=== PATIENT | male | born 1985 | race African-American/Black ===

== ENCOUNTER 2020-08-15 16:18 | Emergency (ER) | payer BC, SELFPAY ==
--- NOTE | ~2020-08-15 | XR_ITS ---
XR chest 1V portable DATE: 08/15/2020 17:15 INDICATION: Midsternal chest pain, cough, congestion. History of asthma. TECHNIQUE: Portable AP chest on 08/15/2020 at 1712 hours COMPARISON: 11/10/2012 AP and lateral chest FINDINGS: Normal heart size. There are patchy bilateral perihilar infiltrates. No pleural effusion or pneumothorax. IMPRESSION: Patchy bilateral perihilar pulmonary infiltrates. Consider bilateral perihilar pneumonia Reviewed, dictated and finalized at location A. IMPRESSION: Patchy bilateral perihilar pulmonary infiltrates. Consider bilatera l perihilar pneumonia
[2020-08-15 16:27] VITALS: BP 110/77; PULSE 83; RESP 18; TEMP 36.8; O2SAT 99
--- NOTE | 2020-08-15 18:38 | ED.GENADULT ---
HPI - General Adult General Chief complaint: Upper Respiratory Infection Stated complaint: COUGH,COLD S/SX Time Seen by Provider: 08/15/20 16:37 Source: patient, family and RN notes reviewed Mode of arrival: ambulatory Limitations: no limitations History of Present Illness HPI narrative: Patient is a 35-year-old male who presents to emergency department for evaluation of upper respiratory symptoms that began with congestion rhinorrhea fatigue body aches and now experiencing cough patient denied any vomiting diarrhea patient does have history of tobacco abuse and marijuana use patient is an asthmatic notes he has been out of his medication patient on arrival has not taken anything for his symptoms lives at home with his patient denies sick contacts and has not been vaccinated for Covid Related Data Home Medications Medication Instructions Recorded Confirmed albuterol 08/15/20 Allergies Allergy/AdvReac Type Severity Reaction Status Date / Time No Known Allergies Allergy Unknown Verified 08/15/20 16:30 Review of Systems Review of Systems: All systems reviewed & are unremarkable except as noted in HPI and below PMFSH Past Medical History Medical History (Updated 08/15/20 @ 18:44 by Russel Galicia PA-C) Asthma Social History Social History (Updated 08/15/20 @ 18:42 by Russel Galicia PA-C) Smoking status: Current every day smoker Alcohol intake: current Exam Narrative: Exam Narrative: GENERAL: Ill-appearing, well-nourished, and in no acute distress. HEAD: Normocephalic, atraumatic. EYES: PERRLA and EOMI. ENT: Nares clear, no rhinorrhea or epistaxis. Mucous membranes moist. Oropharynx without tonsillar hypertrophy exudate or other lesions. NECK: Supple. No adenopathy or masses. No carotid bruits or JVD CHEST: Diminished on auscultation. No respiratory distress. No wheezes rales or rhonchi HEART: Regular rate and rhythm. No murmur heard. EXTREMITIES: Normal range of motion. No edema. SKIN: Warm, dry, no rash. NEURO: No focal deficits. Alert and oriented x3. PSYCH: Normal mood and affect. Course Course Emergency Course: Patient presented with upper respiratory symptoms found to have pneumonia will be tested for Covid given primary care follow-up is agreeing to follow with primary care as instructed he is aware that primary care will be necessary to obtain his results patient will be placed on antibiotics given an inhaler was also given an MDI he has a pulse oximeter at home and will be discharged with outpatient follow-up and agrees with this plan has been provided with reasons to return Vital Signs Vital signs: Vital Signs Temperature 98.3 F 08/15/20 16:27 Pulse Rate 83 08/15/20 16:27 Respiratory Rate 18 08/15/20 16:27 Blood Pressure 110/77 08/15/20 16:27 Pulse Oximetry 99 08/15/20 16:27 Temperature 98.3 F 08/15/20 16:27 Pulse Rate 83 08/15/20 16:27 Respiratory Rate 18 08/15/20 16:27 Blood Pressure 110/77 08/15/20 16:27 Pulse Oximetry 99 08/15/20 16:27 Medical Decision Making MDM Narrative Medical decision making narrative: Patient presented with upper respiratory symptoms for 1 day found to have pneumonia no hypoxemia will be discharged home where he lives with his family will follow with primary care hemodynamically stable ABCs and vital signs intact and stable Vital Signs Vital Signs: Vital Signs Temperature 98.3 F 08/15/20 16:27 Pulse Rate 83 08/15/20 16:27 Respiratory Rate 18 08/15/20 16:27 Blood Pressure 110/77 08/15/20 16:27 Pulse Oximetry 99 08/15/20 16:27 Temperature 98.3 F 08/15/20 16:27 Pulse Rate 83 08/15/20 16:27 Respiratory Rate 18 08/15/20 16:27 Blood Pressure 110/77 08/15/20 16:27 Pulse Oximetry 99 08/15/20 16:27 Lab Data Labs: Lab Results 08/15/20 Range/Units 18:00 SARS-CoV-2 RNA (RT-PCR) Pending Discharge Plan Discharge Clinical Impression: Upper respiratory inf
[2020-08-15 18:55] VITALS: BP 137/85; PULSE 86; RESP 18; O2SAT 98
[2020-08-16 17:24] LABS: SARS-CoV-2 RNA PCR Negative
== END 2020-08-15 18:56 | disposition home or self-care (01) ==
PROVIDERS: Emergency Medicine Emergency Medical Services; Emergency Provider Emergency Medicine
DX: J18.9 Pneumonia, unspecified organism (principal); J06.9 Acute upper respiratory infection, unspecified; Z20.822 Contact with and (suspected) exposure to COVID-19; J45.909 Unspecified asthma, uncomplicated; F17.200 Nicotine dependence, unspecified, uncomplicated
CPT/HCPCS: 71045; 99283; C9803; U0003; U0005

== ENCOUNTER 2020-11-11 09:20 | Emergency (ER) | payer BC, SELFPAY ==
--- NOTE | ~2020-11-11 | XR_ITS ---
EXAMINATION: XR foot LT 2V DATE: 11/11/2020 09:38 INDICATION: Left foot pain and swelling. TECHNIQUE: 2 views of left foot were obtained. COMPARISON: None. FINDINGS: Bone alignment is normal. No fracture. There is mild osteoarthritis of first metatarsophala ngeal joint and some of the midfoot joints. There is an enthesophyte at posterior aspect of calcaneal tuberosity. IMPRESSION: 1. Mild polyarticular osteoarthritis. Reviewed, dictated and finalized at location A.
[2020-11-11 09:23] VITALS: BP 126/87; PULSE 85; RESP 14; TEMP 36.7; O2SAT 98
--- NOTE | 2020-11-11 10:51 | PC.NURSE ---
pt. asking to eat chips told nothing to eat or drink
--- NOTE | 2020-11-11 12:43 | PC.NURSE ---
Pt up to desk multiple times asking for discharge papers and about medications. 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 PA placed orders for lab work before discharge. Pt instructed that PA states she is unable to discharge him without results and pt would have to leave AMA if he needs to leave before. Pt updated and not happy. ERPA back at bedside to speak with pt.
--- NOTE | 2020-11-11 12:47 | ED.LOWEXIN ---
HPI - Extremity Injury (Lower) General Chief Complaint: Extremity Injury, Lower Stated Complaint: left big toe pain Time Seen by Provider: 11/11/20 11:55 Source: patient Mode of arrival: ambulatory Limitations: no limitations History of Present Illness HPI Narrative: This is a 35-year-old male that presents to the emergency department for left great toe pain noted since yesterday. Reports swelling and pain to the area. Denies any certain injury or trauma. Denies fever or erythema. Related Data Home Medications Medication Instructions Recorded Confirmed albuterol 08/15/20 Allergies Allergy/AdvReac Type Severity Reaction Status Date / Time No Known Allergies Allergy Unknown Verified 11/11/20 11:19 Review of Systems Review of Systems: CONSTITUTIONAL: Denies fever SKIN: Denies rash MUSCULOSKELETAL: Reports joint pain, and myalgia. NEUROLOGIC: Denies numbness All systems reviewed & are unremarkable except as noted in HPI and below PMFSH Past Medical History Medical History (Updated 11/11/20 @ 12:47 by Lexii Escobar PA-C) Asthma Social History Social History (Updated 08/15/20 @ 18:42 by Russel Galicia PA-C) Smoking status: Current every day smoker Alcohol intake: current Exam Narrative: GENERAL: Well-appearing, obese, and in no acute distress. HEAD: Normocephalic, atraumatic. EYES: EOMI. EXTREMITIES: Normal range of motion. Mild edema about the left first MTP joint. No erythema or warmth. Normal DP pulses. Normal sensation SKIN: Warm, dry, no rash. NEURO: No focal deficits. Alert and oriented x3. PSYCH: Normal mood and affect Course Vital Signs Vital signs: Vital Signs Temperature 98.1 F 11/11/20 09:23 Pulse Rate 85 11/11/20 09:23 Respiratory Rate 14 11/11/20 09:23 Blood Pressure 126/87 11/11/20 09:23 Pulse Oximetry 98 11/11/20 09:23 Temperature 98.1 F 11/11/20 09:23 Pulse Rate 85 11/11/20 09:23 Respiratory Rate 14 11/11/20 09:23 Blood Pressure 126/87 11/11/20 09:23 Pulse Oximetry 98 11/11/20 09:23 MDM - Extremity Injury (Lower) MDM Narrative Medical decision making narrative: Patient presents to the emergency department for left first MTP joint pain since yesterday. No known injury or trauma. Patient is neurovascularly intact. Mild edema about the joint, no erythema. Left foot x-ray shows mild polyarticular osteoarthritis. Symptoms and exam seem consistent with a possible gout flare. I spoke with patient about this and how I would like to get further laboratory evaluation prior to treating him as our last labs of his show some renal insufficiency. Patient refused and reported he needed to leave. He left AGAINST MEDICAL ADVICE, prior to signing paperwork Imaging Data Radiologist's impression: ITS Impressions Foot X-Ray 11/11/20 09:42 IMPRESSION: 1. Mild polyarticular osteoarthritis. Critical Care Time Critical Care Time Critical Care Time: No Discharge Plan Discharge Clinical Impression: Gout flare Qualifiers: Gout site: toe Gout etiology: unspecified cause Laterality: left Qualified Code(s): M10.9 - Gout, unspecified Patient Disposition: Left Against Medical Advice Condition: Stable Instructions: Gout (ED) Additional Instructions: Return to the emergency department at any time for further evaluation and treatment It does look like you are having a gout flare today. I need to obtain further laboratory evaluation before being able to treat you You may follow-up with primary doctor for further management as well Prescriptions: No Action albuterol RF: 0 albuterol sulfate 90 mcg/actuation HFA aerosol inhaler 3 puff inhalation QID Qty: 8.5 RF: 0 famotidine [Pepcid] 20 mg tablet 20 mg PO BID Qty: 14 RF: 0 ibuprofen [IBU] 600 mg tablet 600 mg PO QID PRN (Reason: fever or pain) Qty: 7 RF: 0 loratadine [Claritin] 10 mg tablet 10 mg PO DAILY PRN (Reason: allergy
--- NOTE | 2020-11-11 12:48 | PC.NURSE ---
PA told pt she will write for pain medication and discharge home. Pt standing outside of room. Pt asked to wait in his room until medication and discharge orders were placed. Pt states he is going to step outside. Pt educated that we are unable to allow him to go outside and return whenever he feels like it within the same encounter. Pt states phone is . Offered to allow pt to use phone within facility. Pt again angry with staff and decided to walk out. Pt left without medications or discharge.
--- NOTE | 2020-11-11 13:37 | PC.NURSE ---
Pt. called wanting to know which pharmacy his Rx were called to; per Lexii and chart pt. left ama and was not prescribed any medications. Attempted to explain this to pt. Pt. started to raise voice and c/o of being here 4 hours; informed pt. I was well aware of his presence and his wait time; line went .
== END 2020-11-11 12:57 | disposition left against medical advice (07) ==
PROVIDERS: Emergency Provider Emergency Medicine
DX: M10.9 Gout, unspecified (principal); J45.909 Unspecified asthma, uncomplicated; F17.200 Nicotine dependence, unspecified, uncomplicated; M19.072 Primary osteoarthritis, left ankle and foot
CPT/HCPCS: 73620; 99283

== ENCOUNTER 2020-11-11 13:09 | Emergency (ER) | payer BC, SELFPAY ==
[2020-11-11 13:29] VITALS: BP 119/84; PULSE 61; RESP 18; TEMP 36.6; O2SAT 100
--- NOTE | 2020-11-11 13:37 | PC.NURSE ---
After patient was triaged, patient wanted to know how long the wait was. This RN explained that a time could not be given, but that there were a couple patients ahead of him at this time and he would be seen shortly. Patient reports he needed to step out to get something to eat because he had been waiting for over 4 hours at the ER and he was starving. Pt immediately exited building after this RN showed him to the room to wait for examination.
--- NOTE | 2020-11-11 13:40 | ED.LOWEXIN ---
HPI - Extremity Injury (Lower) General Chief Complaint: Extremity Injury, Lower Stated Complaint: Left foot Pain Time Seen by Provider: 11/11/20 13:41 History of Present Illness HPI Narrative: 35-year-old male presents to the [facility] with complaints of left great toe pain and swelling with redness for the last couple of days. Had been seen in the emergency room and left. Is now here demanding to be seen and treated. Related Data Allergies Allergy/AdvReac Type Severity Reaction Status Date / Time No Known Allergies Allergy Unknown Verified 11/11/20 11:19 Review of Systems Review of Systems: All systems reviewed & are unremarkable except as noted in HPI and below Constitutional: Constitutional: Reports no additional constitutional complaints, Denies chills and Denies fever(s) Eyes: Eyes: Reports no additional eye complaints ENT: Reports system reviewed and no additional complaints, except as documented Cardiovascular: Cardiovascular: Reports no additional cardiovascular complaints Respiratory: Respiratory: Reports no additional respiratory complaints Musculoskeletal: Musculoskeletal: Reports as per HPI (Left great toe pain) Integumentary/Breasts: Skin/Breast: Reports as per HPI Comments: Redness left great toe Neurologic: Reports system reviewed and no additional complaints, except as documented Psychiatric: Psychiatric: Reports no additional psychiatric complaints Allergic/Immunologic: Allergic/Immunologic: Reports no additional allergic/immunologic complaints [facility] Past Medical History Medical History Asthma Social History Social History Smoking status: Current every day smoker Alcohol intake: current Comments At the time of my signature, I reviewed and agree with the nursing past medical, surgical, social, and family history. There is no relevant family history pertinent to the patient complaint. Exam Const: General: no acute distress and alert Nutritional Appearance: well nourished and obese Orientation/consciousness: patient oriented x3 HENMT: Head: normal to inspection Neck: Neck: normal visual inspection Chest: Chest palpation & inspection: normal inspection of the chest Resp: Effort & Inspection: normal respiratory effort Back/Spine/Pelvis: Back: no CVA tenderness Skin: General skin exam: normal color Other: Left great toe joint swollen, red, warm to touch Neuro: General: patient oriented x3, moves all extremities, no meningeal signs and no focal motor deficits Speech: normal speech Gait exam (Neuro): Normal gait present Extrem: Left lower extremity: foot Details: tenderness Location: of the great toe Location: at the MTP joint Psych: Appearance: grossly normal and well kempt Mental Status: mental status grossly normal Affect: normal affect Attitude: not cooperative Thought content: Yes Normal thought content present Course Course Emergency Course: Patient Hostile, Demanding pain medications and crutches. explained to the patient that he can purchase crutches or a cane at the local [employer] or [employer]. Patient got up and walked out with a normal gait demanding discharge papers right now. Patient in waiting room getting upset with accounts clerk that his papers were not ready. Discharge instructions reviewed with patient, as well as provided in writing per nursing staff. The instructions also include specific and strict return/GO TO THE ER as well as f/u information. All questions have been answered, and the patient deny any further questions with discharge and discharge plan. Patient Vital Signs Vital signs: Vital Signs Temperature 97.9 F 11/11/20 13:29 Pulse Rate 61 11/11/20 13:29 Respiratory Rate 18 11/11/20 13:29 Blood Pressure 119/84 11/11/20 13:29 Pulse Oximetry 100 11/11/20 13:29 Temperature 97.9 F 11/11/20 13:29 Pulse Rate 61 09
== END 2020-11-11 13:48 | disposition home or self-care (01) ==
PROVIDERS: Emergency Provider Nurse Practitioner
DX: M10.9 Gout, unspecified (principal); J45.909 Unspecified asthma, uncomplicated; F17.200 Nicotine dependence, unspecified, uncomplicated
CPT/HCPCS: 99211; G0463

== ENCOUNTER 2021-10-24 01:04 | Emergency (ER) | payer BC, SELFPAY ==
[2021-10-24] VITALS (7 sets, daily range): BP systolic 111–141; BP diastolic 67–96; PULSE 84–125; RESP 17–23; O2SAT 96–99
--- NOTE | 2021-10-24 01:34 | ED.GENADULT ---
HPI - General Adult General Chief complaint: GI Bleed Stated complaint: Bloody stool, hx hemorrhoids Time Seen by Provider: 10/24/21 01:22 History of Present Illness HPI narrative: this is a 36-year-old male with history of hemorrhoids sending the ED with rectal bleeding. Patient says over the last 4 days he has noticed that there has been red blood in the toilet bowl and on his toilet paper. He has a history of hemorrhoids. He says that he has had similar episodes like this in the past but they have not been as bad. He came to emergency department today because he was very anxious. Patient also notes some rectal pain. Patient denies fatigue, dizziness, shortness of breath or chest pain. The patient denies use of blood thinners. He denies any abdominal pain. Related Data Allergies Allergy/AdvReac Type Severity Reaction Status Date / Time No Known Allergies Allergy Unknown Verified 11/11/20 11:19 Review of Systems Review of Systems: CONSTITUTIONAL: Denies night sweats. EYES: No eye pain ENT: Denies rhinorrhea CARDIOVASCULAR: Denies palpitations RESPIRATORY: Denies hemoptysis GASTROINTESTINAL: Denies hematemesis GENITOURINARY: Denies hematuria. SKIN: Denies rash MUSCULOSKELETAL: Denies myalgia. NEUROLOGIC: Denies weakness. PSYCHIATRIC: Denies delusions PMFSH Past Medical History Medical History Asthma Hemorrhoids Social History Social History Smoking status: Current every day smoker Alcohol intake: current Exam Narrative: APPEARANCE: No apparent distress. Head atraumatic. EYES: PERRLA/EOMI, NOSE: Normal no drainage NECK: Supple, Trachea midline RESPIRATORY: CTAB, No increased work of breathing. CARDIOVASCULAR: S1S2 appreciated ABDOMINAL: Soft, nontender, nondistended, with no guarding or rebound Rectal: no external hemorrhoids or fissures noted. Digital exam did not reveal any tanya blood. FOBT was minimally positive MUSCULOSKELETAl: No obvious deformities NEURO: Alert. Moving 4/4 extremities SKIN:: Warm, dry. Normal color PSYCHIATRIC: Normal affect Course Vital Signs Vital signs: Vital Signs Pulse Rate 125 H 10/24/21 01:12 Respiratory Rate 18 10/24/21 01:12 Blood Pressure 141/96 H 10/24/21 01:12 Pulse Oximetry 96 10/24/21 01:12 Oxygen Delivery Room Air 10/24/21 01:12 Pulse Rate 125 H 10/24/21 01:12 Respiratory Rate 18 10/24/21 01:12 Blood Pressure 141/96 H 10/24/21 01:12 Pulse Oximetry 96 10/24/21 01:12 Oxygen Delivery Room Air 10/24/21 01:12 Medical Decision Making MDM Narrative Medical decision making narrative: This is a 36 year old male presenting to the ED w/ red stools. He has a history of hemorrhoids. has rectal exam was unremarkable and there is no tanya blood in the rectal vault. Hemoglobin was obtained which is within normal limits. The patient will be discharged with surgical follow-up. Repeat vital signs were within normal limits. Vital Signs Vital Signs: Vital Signs Pulse Rate 125 H 10/24/21 01:12 Respiratory Rate 18 10/24/21 01:12 Blood Pressure 141/96 H 10/24/21 01:12 Pulse Oximetry 96 10/24/21 01:12 Oxygen Delivery Room Air 10/24/21 01:12 Pulse Rate 125 H 10/24/21 01:12 Respiratory Rate 18 10/24/21 01:12 Blood Pressure 141/96 H 10/24/21 01:12 Pulse Oximetry 96 10/24/21 01:12 Oxygen Delivery Room Air 10/24/21 01:12 Discharge Plan Discharge Clinical Impression: Hemorrhoids Patient Disposition: Home, Self-Care Condition: Stable Instructions: Antibiotic Form, Hemorrhoids (ED) Additional Instructions: please eat a high-fiber diet. Take 3 Sitz baths per day for 15 minutes after bowel movements. You can also use Anusol for symptomatic relief. Please follow-up with the colorectal surgeon. Prescriptions: New psyllium husk [Daily Fiber] 0.52 gram capsule
[2021-10-24 01:51] LABS: Hematocrit 47.3 % (42.0-52.0); Hemoglobin 16.1 g/dL (14.0-18.0)
[2021-10-24] MEDS: SODIUM CHLORIDE 0.9% IV 1,000 ML 999 ML IV CONT (01:57)
== END 2021-10-24 02:54 | disposition home or self-care (01) ==
PROVIDERS: Emergency Provider Emergency Medicine
DX: K64.4 Residual hemorrhoidal skin tags (principal); J45.909 Unspecified asthma, uncomplicated; F17.200 Nicotine dependence, unspecified, uncomplicated
CPT/HCPCS: 36415; 85014; 85018; 96360; 99283; J7030

== ENCOUNTER 2022-02-27 13:02 | Emergency (ER) | payer BC, SELFPAY ==
--- NOTE | ~2022-02-27 | XR_ITS ---
Clinical Indication: Chest pain PA and lateral views of the chest: Comparison: 08/15/2020 Findings: The lungs are clear, without evidence of focal consolidation or pleural effusion. Cardiome diastinal silhouette is within normal limits. Bones and soft tissues are unremarkable. Impression: Normal chest. Reviewed, dictated and finalized at location . OPERATOR Impression: Normal chest.
--- NOTE | 2022-02-27 13:09 | ECG_ITS ---
Measurements Intervals [place] Rate: 84 P: 55 CT: 137 QRS: -36 QRSD: 100 T: 87 QT: 364 QTc: 430 Interpretive Statements SINUS RHYTHM LEFT AXIS DEVIATION NONSPECIFIC T-WAVE ABNORMALITY BORDERLINE ECG NO PREVIOUS ECG AVAILABLE FOR COMPARISON Electronically Signed On 02-27-2022 18:01:21 [employer] by Alli Garcia M.D.
[2022-02-27 13:18] VITALS: BP 134/83; PULSE 92; RESP 14; TEMP 36.4; O2SAT 98
[2022-02-27 13:25] LABS: Basophils Percent Auto 0.3 % (0.2-1.2); Eosinophils Absolute Auto 0.4 K/mm3 (0-0.3); Eosinophils Percent Auto 5.2 % (0-4.4); Hematocrit 50.1 % (42.0-52.0); Hemoglobin 16.8 g/dL (14.0-18.0); Immature Granulocyte Absolute 0.02 K/mm3 (0.00-0.031); Immature Granulocyte Percent A 0.3 % (0-0.5); Lymphocytes Absolute Auto 2.18 K/mm3 (0.9-3.2); Lymphocytes Percent Auto 29.6 % (18.3-44.2); Mean Corpuscular HGB Conc 33.5 g/dl (32-36); Mean Corpuscular Hemoglobin 30.4 pg (26-34); Mean Corpuscular Volume 90.6 fl (80-100); Mean Platelet Volume 10.4 fl (7.4-10.4); Monocytes Absolute Auto 0.7 K/mm3 (0.1-0.6); Monocytes Percent Auto 9.6 % (2.6-8.5); Neutrophils Absolute Auto 4.1 K/mm3 (1.3-6.7); Platelet Count Result 269 k/mm3 (150-375); Red Blood Count 5.53 M/mm3 (4.6-6.20); Red Cell Distribution Width 13.7 % (11.5-14.5); White Blood Count 7.4 K/mm3 (4.5-10.0)
[2022-02-27 13:45] LABS: Alanine Aminotransferase 47 U/L (6-50); Albumin Level 4.3 g/dL (3.5-5.1); Alkaline Phosphatase 64 U/L (38-126); Anion Gap 5 mmol/L (8-16); Aspartate Amino Transferase 37 U/L (17-59); Bilirubin,Total 0.5 mg/dL (0.2-1.3); Blood Urea Nitrogen 13 mg/dL (9-20); Calcium 8.6 mg/dL (8.4-10.2); Carbon Dioxide 26 mmol/L (22-30); Chloride 105 mmol/L (98-107); Estimated Glomerular Filt Rate > 60; Glucose 93 mg/dL (65-110); Lipase 115 U/L (23-300); Potassium 3.9 mmol/L (3.4-5.0); Sodium 136 mmol/L (137-145)
--- NOTE | 2022-02-27 17:03 | PC.NURSE ---
first call for patient in waiting room, no answer
--- NOTE | 2022-02-27 17:10 | PC.NURSE ---
patient still not answering in waiting room. will remove patient from waiting
== END 2022-02-27 17:21 | disposition left against medical advice (07) ==
PROVIDERS: Emergency Provider Family Medicine
DX: R10.9 Unspecified abdominal pain (principal)
CPT/HCPCS: 36415; 71046; 80053; 83690; 85025; 93005; 99199

== ENCOUNTER 2022-07-17 14:14 | Emergency (ER) | payer BC, SELFPAY ==
[2022-07-17 14:36] VITALS: BP 124/88; PULSE 78; RESP 18; TEMP 36.5; O2SAT 99
--- NOTE | 2022-07-17 15:43 | PC.NURSE ---
Pt stated he feels better and no longer needed to see MD.
== END 2022-07-17 15:43 | disposition left against medical advice (07) ==
DX: R06.9 Unspecified abnormalities of breathing (principal)
CPT/HCPCS: 99199